=== PATIENT | male | born 1975 | race Caucasian/White ===

== ENCOUNTER 2023-01-24 11:28 | Emergency (ER) | payer MEDICAID ==
[~2023-01-24] VITALS: Ht 177.8 cm; Wt 99.8 kg
[2023-01-24 11:47] VITALS: TEMP 98.7; O2SAT 98
[2023-01-24] MEDS ORDERED: CEPH500C2 MT (13:45)
[2023-01-24] MEDS ORDERED: SULF1TAB48 MT (13:45)
[2023-01-24] MEDS ORDERED: NAPR-681 MT (13:45)
[2023-01-24 13:56] VITALS: BP 136/74; PULSE 78; RESP 20
== END 2023-01-24 13:56 | disposition home or self-care (01) ==
LOC: ER 12:54
DX: L02.412 Cutaneous abscess of left axilla (principal)
CPT/HCPCS: 99283